=== PATIENT | female | born 1950 | race Caucasian/White ===

== ENCOUNTER 2019-12-22 06:07 | Day surgery (SDC) | payer MEDICARE, OTHER ==
[~2019-12-22] VITALS: Ht 170.2 cm; Wt 76.5 kg
[~2019-12-22 06:07] MED LIST: CHLO25B PO; DIAZ2 PO; HYDCHL25 PO; LIDO700A20 TOP; LOSARTAN POTAS100 M1 PO; MECL25 PO; META800 PO; MOTION RELIEF25 MG PO; NEBI5 PO; Percocet 5-3251 EACH PO; ROSU10TA PO; SPIHYD50 PO; TRANSDERM-SCOP1 EAC1 TD; TRIA50 PO; Voltaren100 GM TOP
--- NOTE | 2019-12-22 09:55 | NUR ---
12/22/19 0955 Wendie Choi PT DENIES PAIN OR DISCOMFORT. DISCHARGE INSTRUCTIONS GIVEN. PT AND SPOUSE STATE UNDERSTAND. DEMONSTRATE POLAR PACK. IV DC'D AND DC'D HOME.
== END 2019-12-22 09:53 | disposition home or self-care (01) ==
LOC: ORSCSDS 06:07
PROVIDERS: Orthopaedic Surgery
PROC: 0LQ14ZZ Repair Right Shoulder Tendon, Percutaneous Endoscopic Approach (ICD-10-PCS; principal; 2019-12-22 07:30)
PROC: 0LU14KZ Supplement Right Shoulder Tendon with Nonautologous Tissue Substitute, Percutaneous Endoscopic Approach (ICD-10-PCS; principal; 2019-12-22 07:30)
PROC: 0LS34ZZ Reposition Right Upper Arm Tendon, Percutaneous Endoscopic Approach (ICD-10-PCS; principal; 2019-12-22 07:30)
PROC: 0RNJ4ZZ Release Right Shoulder Joint, Percutaneous Endoscopic Approach (ICD-10-PCS; principal; 2019-12-22 07:30)
DX: M75.111 Incomplete rotator cuff tear or rupture of right shoulder, not specified as traumatic (principal); M75.21 Bicipital tendinitis, right shoulder; M75.41 Impingement syndrome of right shoulder; M65.811 Other synovitis and tenosynovitis, right shoulder; I10 Essential (primary) hypertension; G47.33 Obstructive sleep apnea (adult) (pediatric); Z79.899 Other long term (current) drug therapy
CPT/HCPCS: C1713; J0171; J1100; J1885; J2250; J2405; J2704; J2710; J3010; J7120

== ENCOUNTER → 2021-01-16 | Outpatient (CLI) | payer MEDICARE, OTHER | LOC: LAB SHORT 08:30 | DX: Z20.818 Contact with and (suspected) exposure to other bacterial communicable diseases (principal); Z88.0 Allergy status to penicillin; Z88.5 Allergy status to narcotic agent; Z88.6 Allergy status to analgesic agent | CPT/HCPCS: 87338 ==